=== PATIENT | female | born 1950 | race African-American/Black ===

== ENCOUNTER 2016-07-11 12:07 | Emergency (ER) ==
[2016-07-11] MEDS ORDERED: NORFLEX IM ONE (13:19)
[2016-07-11] MEDS ORDERED: DECADRON IM ONE (13:19)
[2016-07-11] MEDS ORDERED: NORCO-7.5 PO ONE (13:20)
--- NOTE | 2016-07-11 13:24 | PROVIDER DOCUMENTATION ---
HPI-Musculoskeletal Pain/Inj - GENERAL Source: patient - HX OF PRESENT ILLNESS-MUSKULOSKELTAL Severity in ED: moderate, severe Onset/Duration: abrupt, last week Timing: still present, constant Modifying Factors: worse with: movement, palpation Any recent injury?: No Locality of Occurance: Home Similar Symptoms Previously?: Yes (dx sciatica) Recently seen or treated by another doctor?: Yes (seen in this ED 1 week ago for same; had issues at pharmacy with scrip) - BACK & NECK PAIN/INJURY Back/Neck Pain Location: reports: lumbar spine (L) Back/Neck Pain Radiation: reports: Buttocks (L), Upper Legs (L) Associated Symptoms: reports: lower back pain. denies: loss of bladder control , loss of bowel control, fever, numbness in legs/feet, numbness in upper ext, sensory/motor loss, tingling in legs/feet, tingling in upper ext, weakness in legs/feet, weakness in upper ext History of Chronic Neck or Back Pain?: Yes <Kiara Almonte - Last Filed: 07/11/16 13:18> <Hank Romero - Last Filed: 07/11/16 15:03> - GENERAL Chief Complaint: Return/Recheck Stated Complaint: LEG PAIN Time Seen by Provider: 07/11/16 13:21 - HX OF PRESENT ILLNESS-MUSKULOSKELTAL Nature of Presenting Problem: 65 yo AAF presents to ED with cc of pain like prior episodes of sciatica. Pt was seen in this ED on 07/04/16 (1 week ago) for same problem. Pt brought back her prescription for her medication written at that time, stating that the pharmacy refused to fill it because it was a physician assistant professor of spanish who signed off on it rather than a physician. It should be noted that the prescription was signed by Dr. Martin, not a physician assistant professor of spanish. Pt requested a rewrite of her prescription. Pt denies any numbness or tingling and loss of bowel or bladder control. Upon arrival to ED, pt is mildly depressed but alert and able to answer questions. (Kiara Almonte) Review of Systems - Adult - REVIEW OF SYSTEMS - ADULT Constitutional: reports: no symptoms reported. denies: chills, fever Eyes: reports: no symptoms reported. denies: blurred vision, double vision Ears, Nose, Mouth & Throat: reports: no symptoms reported. denies: sinus problem Cardiovascular: reports: no symptoms reported. denies: chest pain, palpitations Respiratory: reports: no symptoms reported. denies: dyspnea on exertion, shortness of breath Gastrointestinal: reports: no symptoms reported. denies: abdominal pain, frequent heartburn Genitourinary: reports: no symptoms reported. denies: flank pain, frequent UTI' s Musculoskeletal: reports: back pain, other (Pain radiating down from L buttocks to back of leg) Integumentary: reports: no symptoms reported. denies: hives, itching Neurological: reports: no symptoms reported. denies: ataxia, loss of balance Psychiatric: reports: no symptoms reported. denies: anxiety, depression Endocrine: reports: no symptoms reported. denies: cold intolerance, heat intolerance Hematologic/Lymphatic: reports: no symptoms reported. denies: blood clots, lymphedema Allergic/Immunologic: reports: no symptoms reported. denies: allergic reactions , eczema All Other Systems: Reviewed and Negative <Kiara Almonte - Last Filed: 07/11/16 13:18> Past History - Adult - PAST MEDICAL HISTORY-ADULT Review of Records: reports: Old Records Reviewed, Nursing Assessment Review, Medications Reviewed Major Childhood Illnesses: reports: denies history Cardiovascular: reports: CAD, HTN, [place] Respiratory: reports: denies history Gastrointestinal: reports: GERD Obstetrical/Gynecological: reports: denies history Genitourinary: reports: denies history Musculoskeletal: reports: chronic pain (knees) Neurological: reports: denies history Endocrine/Immune: reports: denies history Other Conditions: reports: denies history - PRIOR SURGERIES/PROCEDURES Surgical/Procedure History: reports: cardiac stent, joint replacement, other ( gallstones,) - PRIOR HOSPITALIZATIONS Prior Hospitalizations: reports: for similar symptoms - IMMUNIZATION STATUS Childhood Immunizations: See Nurse Assessment Flu Vaccine: See Nurse Assessment - FAMILY HISTORY Family History: reviewed, not pertinent <Kiara Almonte - Last Filed: 07/11/16 13:18> Physical Exam-Injury Related - Physical Exam-Injury Related Initial Vital Signs Reviewed: Yes General Appearance: alert, mild distress Eyes: PERRL/EOMI, pink conjunctivae Head, Ears, Nose, Mouth & Throat: normocephalic/atraumatic, moist mucous membranes Neck: non-tender, full range of motion, supple Respiratory: chest non-tender, lungs clear, normal breath sounds Cardiovascular: normal peripheral pulses, regular rate, rhythm Abdominal Exam: normal bowel sounds, non tender, soft Lymphatic: no adenopathy Back Exam: vertebral tenderness (L lower) Extremity: non-tender, other (Painful ROM). negative: normal gait (Pain on walking impacting gait) Integumentary: normal color, warm/dry, blanching Neurologic: grossly normal, no motor/sensory deficits Psych/Mental Status: normal mood/affect, normal thought content, normal thought process, oriented x 3 <Kiara Almonte - Last Filed: 07/11/16 13:18> Departure <Kiara Almonte - Last Filed: 07/11/16 13:18> - Departure Time of Disposition Order: 13:35 Certified Medical Emergency: Emergent <Hank Romero - Last Filed: 07/11/16 15:03> - Departure DIAGNOSIS: Sciatica Low back pain Qualifiers: Chronicity: acute Back pain laterality: bilateral Sciatica presence: with sciatica Sciatica laterality: sciatica of left side Qualified Code(s): M54.42 - Lumbago with sciatica, left side Disposition: HOME 01 Condition: Stable Additional Instructions: ED Follow Up Instructions: You have been treated by a care provider in the Emergency Department. These instructions are being provided to you so you can have an understanding of how to care for yourself upon discharge. Upon discharge from the Emergency Department, you are responsible for making arrangements for follow-up care by a physician of your choice. Take all prescribed medications as directed. Return to the Emergency Department immediately for any new or worsening symptoms. You may call the Physician Referral phone number at [phone] to obtain a list of Physicians who are taking new patients. Prescriptions: Hydrocodone/APAP 7.5 mg/325 mg [[place]-7.5] 1 each PO Q6H PRN PRN #10 tablet PRN Reason: Pain Referrals: None,PCP [Primary Care Provider] - Nabor Bronwing MD [STAFF PHYSICIAN] - Instructions: Sciatica, [id number], Hydrocodone; Ibuprofen tablets Attestation - Scribe Verification/Attestation Scribe:: Kiara Almonte Acting as Scribe for:: Hank Romero Scribe documention review:: This chart was documented by a scribe and accurately reflects the service the provider performed and the decisions made by the provider. - Physician/ GLEN Attestation Patient care was provided by Advanced Practice Provider:: Yes Advanced Practice Provider:: Hank Romero Advanced Practice Provider documentation review:: The Mid-level provider documentation, treatment plan and medical decision making was reviewed by the physician who agrees with all treatment and medical decision making by the MLP. <Kiara Almonte - Last Filed: 07/11/16 13:18> Physician Attestation
[2016-07-11 13:55] VITALS: BP 147/78
== END 2016-07-11 13:55 | disposition home or self-care (01) ==
LOC: P.ED 12:07
DX: M54.42 Lumbago with sciatica, left side (principal); M79.605 Pain in left leg; M79.1 Myalgia; I25.10 Atherosclerotic heart disease of native coronary artery without angina pectoris; I10 Essential (primary) hypertension; I25.2 Old myocardial infarction; M25.562 Pain in left knee; M25.561 Pain in right knee; G89.29 Other chronic pain; Z95.5 Presence of coronary angioplasty implant and graft; Z79.899 Other long term (current) drug therapy
CPT/HCPCS: 96372; J2360